=== PATIENT | female | born 1995 ===

== ENCOUNTER 2017-03-31 01:08 | Emergency (ER) | payer OTHER ==
[~2017-03-31] VITALS: Ht 165.1 cm; Wt 62.3 kg
[2017-03-31 01:13] VITALS: BP 109/64; TEMP 97.6
[2017-03-31 02:32] VITALS: PULSE 66
== END 2017-03-31 02:33 | disposition home or self-care (01) ==
LOC: COL.ER 01:08
DX: B85.2 Pediculosis, unspecified (principal)
CPT/HCPCS: J7512

== ENCOUNTER 2018-02-11 23:35 | Emergency (ER) | payer OTHER ==
[~2018-02-11] VITALS: Ht 165.1 cm; Wt 62.7 kg
[2018-02-11 23:37] VITALS: BP 143/56; TEMP 99.9
[2018-02-12 00:48] LABS: BASO # 0.1 (0.0-0.2); BASO % 0.7 % (0.0-2.0); EOS # 0.3 (0.0-0.7); EOS % 2.7 % (0-4.0); GRAN # 7.1 (1.4-6.5); GRAN % 68.7 % (42.2-75.2); HEMOGLOBIN 13.9 g/dl (12.5-16.0); LYMPH # 1.9 (1.2-3.4); LYMPH % 18.6 % (20.0-51.0); MEAN CELL VOLUME 92 fl (80.0-100.0); MEAN CORPUSCULAR HEMOGLOBIN 30 pg (27.0-31.0); MEAN CORPUSCULAR HGB CONC 33 g/dl (33.0-37.0); MEAN PLATELET VOLUME 9.5 fl (7.4-10.4); MONO # 0.9 (0.1-0.6); PLATELET COUNT 361 K/mm3 (130-400); RED BLOOD COUNT 4.59 M/mm3 (4.10-5.30); REDCELL DISTRIBUTION WIDTH-CV 14.2 % (11.5-14.5)
[2018-02-12] MEDS ORDERED: VALTREX 50500 MG/TAB PO (00:52)
[2018-02-12] MEDS ORDERED: MIRENA52 MG (00:53)
[2018-02-12 00:59] LABS: BILIRUBIN,TOTAL 0.5 mg/dL (0.0-1.0); CALCIUM 9.1 mg/dL (8.4-10.2); CREATININE, serum 0.73 mg/dL (0.52-1.25); POTASSIUM 3.4 mmol/L (3.4-5.0); TOTAL PROTEIN 6.9 gm/dL (6.4-8.2)
[2018-02-12] MEDS ORDERED: ZITHROMAX Z PA250 MG PO (01:30)
[2018-02-12 02:00] VITALS: PULSE 74
== END 2018-02-12 02:05 | disposition home or self-care (01) ==
LOC: COL.ER 23:35
PROVIDERS: Physician Assistant
DX: J18.9 Pneumonia, unspecified organism (principal); F17.210 Nicotine dependence, cigarettes, uncomplicated